=== PATIENT | female | born 1990 | race Caucasian/White ===

== ENCOUNTER 2017-10-31 15:49 | Emergency (ER) | payer OTHER ==
[~2017-10-31] VITALS: Ht 154.9 cm; Wt 59.0 kg
--- NOTE | 2017-10-31 16:15 | NUR ---
BIB SELF R L Q ABD PAIN & PELVIC PAIN X 2 DAYS. PLACED ON HOSP GOWN, URINE COLLECTED. PT STS SHE HAD APPENDECTOMY 10/08/17. PT DENIES CP, SOB, DIZZINESS, CHILLS, FEVER @ THIS TIME. JARRETT MILES @ BS FOR EVAL.
[2017-10-31] MEDS ORDERED: IV NS 0.9% 1,000 ML BAG IV ONE (16:30)
[2017-10-31] MEDS ORDERED: ONDANSETRON HCL/PF 4 MG/2 ML VIAL IVP ONE (16:30)
[2017-10-31] MEDS ORDERED: MORPHINE SULFATE INJ 2 MG/ML DISP.SYRIN IV ONE (16:30)
[2017-10-31 16:35] LABS: APPEARANCE,URINE Clear (CLEAR); BILIRUBIN,URINE Negative (NEGATIVE); BLOOD, URINE Negative Ery/uL (NEGATIVE); COLOR,URINE Yellow (YELLOW); KETONES,URINE Negative (NEGATIVE); LEUKOCYTE ESTERASE ,URINE Trace (NEGATIVE); NITRITE, URINE Negative (NEGATIVE); PH,URINE 7.5 (5.0-8.0); PROTEIN,URINE Negative (NEGATIVE); UGLUCOSE Negative (NEGATIVE); UROBILINOGEN,URINE 0.2 EU/dL (0.2)
[2017-10-31 16:39] LABS: BACTERIA,URINE Few /HPF (None Seen); SQUAMOUS EPITHELIAL CELL,UR Moderate /HPF (None Seen)
[2017-10-31 16:40] LABS: MUCUS,URINE Few /LPF (None Seen)
[2017-10-31] MEDS ORDERED: ONDANSETRON HCL/PF 4 MG/2 ML VIAL ONE (16:44)
[2017-10-31] MEDS ORDERED: MORPHINE SULFATE INJ 4 MG/ML DISP.SYRIN ONE (16:45)
[2017-10-31 16:52] LABS: BASOPHILS % (AUTO) 0.9 % (0.0-2.0); EOSINOPHILS % (AUTO) 6.4 % (0.0-6.0); HEMATOCRIT 36 % (33-45); LYMPHOCYTES # (AUTO) 1.6 /CMM (0.8-4.8); LYMPHOCYTES % (AUTO) 30.1 % (20.0-44.0); MEAN CORPUSCULAR HEMOGLOBIN 32 PG (26.0-33.0); MEAN CORPUSCULAR HGB CONC 34 g/dl (31.0-36.0); MEAN CORPUSCULAR VOLUME 96 fL (82-100); MONOCYTES # (AUTO) 0.3 /CMM (0.1-1.30); MONOCYTES % (AUTO) 5.7 % (2.0-12.0); NEUTROPHILS # (AUTO) 3.1 /CMM (1.8-8.9); NEUTROPHILS % (AUTO) 56.9 % (43.0-81.0); PLATELET COUNT (AUTO) 290 /CMM (150-450); RDW COEFFICIENT OF VARIATION 12.9 (11.5-15.0); WHITE BLOOD COUNT (AUTO) 5.4 K/uL (4.3-11.0)
[2017-10-31 17:12] LABS: INR 0.96 (0.87-1.13)
[2017-10-31 17:13] LABS: ALBUMIN 4.2 g/dL (3.4-5.0); BILIRUBIN,DIRECT 0.1 mg/dL (0.0-0.2); BILIRUBIN,TOTAL 0.4 mg/dL (0.2-1.0); CREATININE 0.8 mg/dL (0.6-1.3); POTASSIUM 3.8 mmol/L (3.5-5.1); TOTAL PROTEIN, SERUM 7.4 g/dL (6.4-8.2)
[2017-10-31] MEDS ORDERED: IOHEXOL-300 100 ML VIAL IV ONE (18:53)
[2017-10-31] MEDS ORDERED: IV NS 0.9% 250 ML IV ONE (18:53)
--- NOTE | 2017-10-31 19:00 | NUR ---
PT RESTING COMFORTABLY, ABD PAIN 3/10 & CASEY WELL. DENIES CP, SOB, DIZZINESS, N/V @ THIS TIME.
[2017-10-31 20:52] VITALS: BP 120/53
== END 2017-10-31 20:53 | disposition home or self-care (01) ==
LOC: ER 15:50
DX: R10.31 Right lower quadrant pain (principal); Z90.89 Acquired absence of other organs; Z88.8 Allergy status to other drugs, medicaments and biological substances
CPT/HCPCS: 36415; 74176; 76856; 80048; 80076; 81001; 83605; 84703; 85025; 85730; 96374; 96375; 99285; A4606; J2270; J2405; J7030; J7050; Q9967; Z7610; 81000-TC